=== PATIENT | male | born 1985 | race Caucasian/White ===

== ENCOUNTER 2017-02-02 07:04 | Day surgery (SDC) | payer OTHER ==
[2017-02-02] MEDS ORDERED: fentaNYL 100 MCG/2 ML SDV ONE (07:26)
[2017-02-02] MEDS ORDERED: Midazolam 1 MG/ML 2 ML SDV ONE (07:26)
[2017-02-02] MEDS ORDERED: Propofol 200 MG/20 ML SDV ONE (07:26)
[2017-02-02] MEDS ORDERED: Ondansetron 4 MG/2 ML SDV ONE (07:29)
[2017-02-02] MEDS ORDERED: Lactated Ringers 1,000 ML IV SCH ×2 (08:00→09:45)
--- NOTE | 2017-02-02 08:07 | PCM.PREANE ---
Preanesthetic Assessment - Anesthesia/Transfusion/Family Hx Anesthesia History: Prior Anesthesia Without Reaction Family History of Anesthesia Reaction: No Transfusion History: No Prior Transfusion(s) - Review of Systems General: No Symptoms Pulmonary: No Symptoms Cardiovascular: No Symptoms Gastrointestinal: No Symptoms Neurological: No Symptoms Other: Reports: None - Physical Assessment NPO Status Date: 02/01/17 NPO Status Time: 23:00 O2 Sat by Pulse Oximetry: 97 Respiratory Rate: 16 Vital Signs: Last Vital Signs Temp 37.2 C 02/02/17 07:25 Pulse 82 02/02/17 07:25 Resp 16 02/02/17 07:25 BP 145/82 H 02/02/17 07:25 Pulse Ox 97 02/02/17 07:25 Height: 1.7 m Weight: 113.398 kg ASA Class: 1 Mental Status: Alert & Oriented x3 Airway Class: Mallampati = 1 Dentition: Reports: Normal Dentition ROM/Head Extension: Full Lungs: Clear to Auscultation, Normal Respiratory Effort Cardiovascular: Regular Rate, Regular Rhythm - Allergies Allergies/Adverse Reactions: Allergies Allergy/AdvReac Type Severity Reaction Status Date / Time acetaminophen [From [place]] Allergy Nausea and Verified 01/30/17 14:08 Vomiting cefaclor [From Ceclor] Allergy Airway Verified 01/30/17 14:08 Tightness hydrocodone [From [place]] Allergy Nausea and Verified 01/30/17 14:08 Vomiting Penicillins Allergy Airway Verified 01/30/17 14:08 Tightness - Blood Blood Available: No - Anesthesia Plan Pre-Op Medication Ordered: None - Acknowledgements Anesthesia Type Planned: General Anesthesia Pt an Appropriate Candidate for the Planned Anesthesia: Yes Alternatives and Risks of Anesthesia Discussed w Pt/Guardian: Yes Pt/Guardian Understands and Agrees with Anesthesia Plan: Yes Additional Comments: LMA, lateral or semi-lateral. PreAnesthesia Questionnaire HEENT History: Reports: Allergic Rhinitis Other HEENT History: wears glasses/contacts Gastrointestinal History: Reports: GERD Musculoskeletal History: Reports: Fracture Other Musculoskeletal History: right ankle Neurological History: Reports: Other (See Below) Other Neuro History: had febrile seizures as a child, none as an adult Dermatologic History: Reports: Other (See Below) Other Dermatologic History: very dry sensitive skin - Past Surgical History Head Surgeries/Procedures: Reports: None Musculoskeletal Surgical History: Reports: ORIF Other Musculoskeletal Surgeries/Procedures:: ORIF right ankle (has hardware) - SUBSTANCE USE Smoking Status *Q: Never Smoker Days Per Week of Alcohol Use: 1 Recreational Drug Use History: No - HOME MEDS Home Medications: Home Meds Diphenhydra/Phenyleph/Acetamin [Cold & Flu Relief Multi-Sym Lq] 1 dose PO ASDIRECTED 01/30/17 [History] - CURRENT (IN HOUSE) MEDS Current Meds: Current Medications Lactated Ringer's (Ringers, Lactated) 1,000 mls @ 125 mls/hr IV ASDIRECTED CROW Last Admin: 02/02/17 07:26 Dose: 125 mls/hr Discontinued Medications Fentanyl (Sublimaze) Confirm Administered Dose 200 mcg .ROUTE .STK-MED ONE Stop: 02/02/17 07:27 Lidocaine HCl (Xylocaine-Mpf 1%) Confirm Administered Dose 5 ml .ROUTE .STK-MED ONE Stop: 02/02/17 07:30 Midazolam HCl (Versed 1 Mg/Ml) Confirm Administered Dose 2 mg .ROUTE .STK-MED ONE Stop: 02/02/17 07:27 Ondansetron HCl (Zofran) Confirm Administered Dose 4 mg .ROUTE .STK-MED ONE Stop: 02/02/17 07:30 Propofol (Diprivan 20 Ml) Confirm Administered Dose 200 mg .ROUTE .STK-MED ONE Stop: 02/02/17 07:27
[2017-02-02] MEDS ORDERED: Morphine 10 MG/ML Syringe IVPUSH PRN (09:42)
[2017-02-02] MEDS ORDERED: Acetaminophen/HYDROcodone 325-5 MG Tab PO PRN (09:42)
--- NOTE | 2017-02-02 09:44 | PCM.OPNOTE ---
- General Post-Op/Procedure Note Date of Surgery/Procedure: 02/02/17 Operative Procedure(s): Excision of multiple scalp inclusion cysts Pre Op Diagnosis: Multiple scalp inclusion cysts Post-Op Diagnosis: Same Anesthesia Technique: General LMA (ASA I) Primary Surgeon: Larry Hayes Fluid Replacement, Intraop: 750 EBL in mLs: 5 Condition: Good Free Text/Narrative:: Dictation [id number]
--- NOTE | 2017-02-02 09:59 | OR ---
SURGEON: Larry Hayes M.D. DATE OF PROCEDURE: 02/02/2017 OPERATION PERFORMED: Excision of multiple scalp inclusion cysts. A total of five were removed. ANESTHESIA: General LMA. ASA CLASSIFICATION: I. PREOPERATIVE DIAGNOSIS: Multiple enlarging scalp cysts. POSTOPERATIVE DIAGNOSIS: Multiple enlarging scalp cysts. ESTIMATED BLOOD LOSS: 5 mL. INTRAOPERATIVE FLUID REPLACEMENT: 750 mL of crystalloid. DESCRIPTION OF PROCEDURE: The patient was taken to the operating room and placed on the operating table in the supine position. Time-out was called for appropriate identification of the patient and procedure. Following satisfactory induction of general anesthesia and placement of an LMA, the scalp was prepped with Betadine solution. Sterile drapes were applied. Incisions were made over each cyst and using a combination of sharp and blunt dissection, the cysts were removed. Each cyst was approached individually. After the cyst was removed, the wound was closed with running locked 3-0 Nylon.. Once all cysts had been removed and closed, the wounds were inspected for hemostasis, no other bleeding was noted. The scalp was then cleansed and the incisions dressed with bacitracin ointment. Sponge, needle, and instrument counts were all correct. The patient tolerated the procedure well. Following emergence from anesthesia and extubation, he was taken to recovery room in stable condition. JOSE / MARLENI /[id number] EMILIO
[2017-02-02] MEDS ORDERED: traMADol 50 MG Tab PO PRN (10:10)
--- NOTE | 2017-02-02 10:37 | PCM48HPAN ---
Post Anesthesia Note - EVALUATION WITHIN 48HRS OF ANESTHETIC Vital Signs in Normal Range: Yes Patient Participated in Evaluation: Yes Respiratory Function Stable: Yes Airway Patent: Yes Cardiovascular Function Stable: Yes Hydration Status Stable: Yes Pain Control Satisfactory: Yes Nausea and Vomiting Control Satisfactory: Yes Mental Status Recovered: Yes
[2017-02-02] MEDS ORDERED: Acetaminophen/oxyCODONE 325-5 MG Tab ONE (11:16)
[2017-02-02] MEDS ORDERED: Acetaminophen/oxyCODONE 325-5 MG Tab PO PRN (11:27)
--- NOTE | 2017-02-13 10:34 | OR ---
SURGEON: Larry Hayes M.D. DATE OF PROCEDURE: 02/02/2017 ADDENDUM Please note that a total of 6 cysts were removed and ranged in size from 7 mm to 20 mm. JOSE / MARLENI /[id number]
== END 2017-02-02 11:55 | disposition home or self-care (01) ==
LOC: MW.SDS 07:04
PROVIDERS: ATTEND Surgery
DX: L72.12 Trichodermal cyst (principal); Z88.0 Allergy status to penicillin; Z88.1 Allergy status to other antibiotic agents; Z98.890 Other specified postprocedural states; Z72.0 Tobacco use
CPT/HCPCS: 11421; 88304; A9270; J2250; J2270; J2405; J3010; J7120; 00300; J2704

== ENCOUNTER 2018-01-15 05:13 | Observation (INO) | payer OTHER ==
[2018-01-15 05:51] LABS: CHLORIDE,CL 103 mmol/L (98-107); SODIUM,NA 137 mmol/L (136-148)
[2018-01-15] MEDS ORDERED: Iopamidol 755 MG/ML 500 ML Multipack Bottle IVPUSH STA (05:51)
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
[2018-01-15] MEDS ORDERED: Diphtheria,Pertussis(Acell),Tetanus Vaccine 0.5 ML Syringe IM ONE (07:12)
[2018-01-15] MEDS ORDERED: Sodium Chloride 0.9% 10 ML Syringe FLUSH PRN (07:55)
[2018-01-15] MEDS ORDERED: Sodium Chloride 0.9% 2.5 ML Syringe FLUSH PRN (07:55)
[2018-01-15] MEDS ORDERED: Acetaminophen 325 MG Tab PO PRN (07:55)
[2018-01-15] MEDS ORDERED: traMADol 50 MG Tab PO PRN (07:57)
[2018-01-15] MEDS ORDERED: Lactated Ringers 1,000 ML IV SCH (08:00)
[2018-01-15] MEDS: Ketorolac 10 MG Tab PO SCH ×2 (08:30→13:41)
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
[2018-01-15] MEDS ORDERED: Bacitracin Oint 1 GM U/D Packet TOP ONE (14:26)
[2018-01-15] MEDS ORDERED: Bacitracin Oint 1 GM U/D Packet ONE (14:28)
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
== END 2018-01-15 20:15 | disposition home or self-care (01) ==
LOC: MW.ED 05:13 → MW.MS 07:11
PROVIDERS: ADMIT Surgery; ATTEND Surgery
DX: S50.312A Abrasion of left elbow, initial encounter (principal); M25.562 Pain in left knee; M25.552 Pain in left hip; R07.9 Chest pain, unspecified; V49.40XA Driver injured in collision with unspecified motor vehicles in traffic accident, initial encounter
CPT/HCPCS: 36415; 70450; 71260; 72125; 72128; 73090; 73552; 73590; 73610; 74177; 80053; 81001; 84484; 85025; 90471; 90715; 93005; 96361; 96374; 99285; A9270; G0378; J7120; Q9967; 72131-26; 96360; 99284